=== PATIENT | female | born 1995 | race American Indian/Alaskan Native ===

== ENCOUNTER 2017-07-03 14:07 | Emergency (ER) | payer SELFPAY ==
[2017-07-03 14:31] VITALS: BP 130/67
[2017-07-03] MEDS ORDERED: TYLENOL PO ONE (14:31)
[2017-07-03] MEDS ORDERED: TYLENOL ONE (14:33)
--- NOTE | 2017-07-03 17:14 | Emergency Department Report ---
ED General Adult HPI - General Chief complaint: Fever Stated complaint: FLU LIKE SYMPTOMS Time Seen by Provider: 07/03/17 17:08 Source: patient Mode of arrival: Ambulatory Limitations: No Limitations - History of Present Illness Initial comments: Patient is a 22-year-old female with no past medical history who presents with body aches and sore throat that's been going on for the last couple days. Patient states that she's also been nauseous and had some body aches going on that have been going on intermittently. Patient's mom is nonbloody nonbilious she states that she's been around sick contacts and she has had a stuffy nose. Patient's body aches are 5 out 10 to locate throughout her body nothing makes it better nothing makes it worse is an achy type of pain. Patient denies having any headache she also denies having any neck pain. No vaginal bleeding or vaginal discharge. Severity scale (0 -10): 5 - Related Data Previous Rx's Medication Instructions Recorded Last Taken Type Ibuprofen [Motrin 400 MG tab] 400 mg PO Q8H PRN #14 tablet 01/26/15 Unknown Rx Prednisone [predniSONE 5 mg (6-Day 5 mg PO .TAPER #1 tab.ds.pk 01/26/15 Unknown Rx Pack, 21 Tabs)] Dextromethorphan Polistirex 30 mg PO Q6H #120 ml 07/03/17 Unknown Rx [Delsym] Ondansetron [Zofran Odt] 4 mg PO Q6H #12 tab.rapdis 07/03/17 Unknown Rx Oxymetazoline 0.05% [Afrin] 1 spray NS Q6H #1 bottle 07/03/17 Unknown Rx Phenylephrine/Dm/Acetaminop/GG 1 each PO Q6H #30 tablet 07/03/17 Unknown Rx [Tylenol Cold & Flu Severe Cplt] Allergies Allergy/AdvReac Type Severity Reaction Status Date / Time No Known Allergies Allergy Verified 07/03/17 14:26 ED Review of Systems ROS: Stated complaint: FLU LIKE SYMPTOMS Other details as noted in HPI Constitutional: fever. denies: chills Eyes: denies: eye pain, eye discharge, vision change ENT: throat pain Respiratory: denies: cough, shortness of breath, wheezing Cardiovascular: denies: chest pain, palpitations Endocrine: no symptoms reported Gastrointestinal: denies: abdominal pain, nausea, diarrhea Genitourinary: denies: urgency, dysuria, discharge Musculoskeletal: denies: back pain, joint swelling, arthralgia Skin: denies: rash, lesions Neurological: denies: headache, weakness, paresthesias Psychiatric: denies: anxiety, depression Hematological/Lymphatic: denies: easy bleeding, easy bruising ED Past Medical Hx - Past Medical History Hx Arthritis: Yes (Rheumatoid arthritis) Hx Asthma: Yes Additional medical history: Lupus - Surgical History Past Surgical History?: No - Social History Smoking Status: Never Smoker Substance Use Type: None - Medications Home Medications: Home Medications Medication Instructions Recorded Confirmed Last Taken Type Ibuprofen [Motrin 400 MG tab] 400 mg PO Q8H PRN #14 tablet 01/26/15 Unknown Rx Prednisone [predniSONE 5 mg (6-Day 5 mg PO .TAPER #1 tab.ds.pk 01/26/15 Unknown Rx Pack, 21 Tabs)] Dextromethorphan Polistirex 30 mg PO Q6H #120 ml 07/03/17 Unknown Rx [Delsym] Ondansetron [Zofran Odt] 4 mg PO Q6H #12 tab.rapdis 07/03/17 Unknown Rx Oxymetazoline 0.05% [Afrin] 1 spray NS Q6H #1 bottle 07/03/17 Unknown Rx Phenylephrine/Dm/Acetaminop/GG 1 each PO Q6H #30 tablet 07/03/17 Unknown Rx [Tylenol Cold & Flu Severe Cplt] ED Physical Exam - General Limitations: No Limitations General appearance: alert, in no apparent distress - Head Head exam: Present: atraumatic, normocephalic - Eye Eye exam: Present: normal appearance - ENT ENT exam: Present: mucous membranes moist - Neck Neck exam: Present: normal inspection - Respiratory Respiratory exam: Present: normal lung sounds bilaterally. Absent: respiratory distress - Cardiovascular Cardiovascular Exam: Present: regular rate, normal rhythm. Absent: systolic murmur, diastolic murmur, rubs, gallop - GI/Abdominal GI/Abdominal exam: Present: soft, normal bowel sounds - Extremities Exam Extremities exam: Present: normal inspection - Back Exam Back exam: Present: normal inspection - Neurological Exam Neurological exam: Present: alert, oriented X3 - Psychiatric Psychiatric exam: Present: normal affect, normal mood - Skin Skin exam: Present: warm, dry, intact, normal color. Absent: rash ED Course Vital Signs 07/03/17 14:27 Temperature 101 F H Pulse Rate 116 H Respiratory 16 Rate Blood Pressure 130/67 O2 Sat by Pulse 99 Oximetry ED Medical Decision Making - Medical Decision Making Cdx: Influenza ddx: Sinusitis, Adenovirus, viral pharngitis I will send patient home with tylenol, motrin and cough medicine to go home with. Critical care attestation.: If time is entered above; I have spent that time in minutes in the direct care of this critically ill patient, excluding procedure time. ED Disposition Clinical Impression: Influenza Pharyngitis Qualifiers: Pharyngitis/tonsillitis etiology: unspecified etiology Qualified Code(s): J02.9 - Acute pharyngitis, unspecified Nausea and vomiting Qualifiers: Vomiting type: unspecified Vomiting Intractability: unspecified Qualified Code( s): R11.2 - Nausea with vomiting, unspecified Disposition: - TO HOME OR SELFCARE Is pt being admited?: No Does the pt Need Aspirin: No Condition: Stable Instructions: Influenza (ED) Prescriptions: Dextromethorphan Polistirex [Delsym] 30 mg PO Q6H #120 ml Ondansetron [Zofran Odt] 4 mg PO Q6H #12 tab.rapdis Oxymetazoline 0.05% [Afrin] 1 spray NS Q6H #1 bottle Phenylephrine/Dm/Acetaminop/GG [Tylenol Cold & Flu Severe Cplt] 1 each PO Q6H # 30 tablet Referrals: MITZY TEMPLE MD [Staff Physician] - 3-5 Days Forms: Work/School Release Form(ED)
== END 2017-07-03 17:32 | disposition home or self-care (01) ==
LOC: ED 14:07
DX: J11.1 Influenza due to unidentified influenza virus with other respiratory manifestations (principal); J02.9 Acute pharyngitis, unspecified; M19.90 Unspecified osteoarthritis, unspecified site
CPT/HCPCS: 99282